=== PATIENT | male | born 1985 | race Caucasian/White ===

== ENCOUNTER 2016-06-26 10:38 | Emergency (ER) | payer SELFPAY ==
[~2016-06-26] VITALS: Ht 175.3 cm; Wt 70.0 kg
[~2016-06-26 10:38] MED LIST: ALPR1TAB3 PO
[2016-06-26 10:41] VITALS: BP 134/74; PULSE 92; RESP 16; TEMP 98.1; O2SAT 98
[2016-06-26] MEDS ORDERED: IBUP800T23 PO (12:11)
[2016-06-26] MEDS ORDERED: AMOX500C PO (12:11)
[2016-06-26] MEDS ORDERED: MAGICADU2 SWISH-SPIT (12:11)
--- NOTE | 2016-06-26 12:12 | PD ---
HPI Chief Complaint: ENT Complaint Time Seen by Provider: 12:10 Travel History International Travel<30 days: No Contact w/Intl Traveler<30days: No Traveled to known affect area: No History of Present Illness HPI 30-year-old male presents to the emergency Department with complaint of sore throat and white stuff on his tonsils for the last 3-4 days. Reports MAXIMUM TEMPERATURE 103.0 at home. Denies cough. Denies ear pain, nasal congestion. Reports swollen lymph nodes in his neck. Denies lump in throat, difficulty swallowing, unusual drooling. Reports painful swallowing. Has tried using a Q- tip to scrape some of the white stuff from his tonsils. Has taken ibuprofen and Tylenol with no relief of pain. Has not tried any other treatments or medications to alleviate his symptoms. No known relieving factors. Allergies to Tylenol, codeine, Ultram, Zoloft. No other modifying factors or associated signs and symptoms. PFSH Past Medical History Arthritis: Yes Asthma: No Anxiety: Yes Heart Rhythm Problems: No Cardiovascular Problems: Yes (VIRAL PERICARDITIS) High Cholesterol: No Chest Pain: No Congestive Heart Failure: No COPD: No Cerebrovascular Accident: No Diminished Hearing: No GERD: No Headaches: No Hepatitis: No Hiatal Hernia: No Hypertension: No Kidney Stones: No Musculoskeletal: No Neurologic: Yes (TBI) Reproductive: No Respiratory: No Migraines: No Myocardial Infarction: No Renal Failure: No Seizures: No Sleep Apnea: No Ulcer: No Past Surgical History Abdominal Surgery: No Appendectomy: No Cardiac Surgery: No Cholecystectomy: No Ear Surgery: No Endocrine Surgery: No Eye Surgery: No Genitourinary Surgery: No Gynecologic Surgery: No Oral Surgery: No Thoracic Surgery: No Social History Alcohol Use: Yes (BEER AND MIXED DRINKS ON WEEKEND) Tobacco Use: Yes (1 PPD X 12 YEARS) Substance Use: Yes (NARCOTICS) Allergies-Medications (Allergen,Severity, Reaction): Coded Allergies: Ultram (Verified Allergy, Severe, Itching, 12/25/15) Zoloft (Verified Allergy, Severe, Hives, 12/25/15) Tylenol/Codeine (Verified Adverse Reaction, Severe, Nausea/Vomiting, ) Reported Meds & Prescriptions Reported Meds & Active Scripts Active Ibuprofen 800 Mg Tab 800 Mg PO Q6HR PRN Magic Mouthwash Adult Liq (Multi-Ingredient Mouthwash/Gargle) 120 Ml Susp 5 Ml SWISH-SPIT Q3HR PRN Each 5mL contains: Nystatin 200,000units, Diphenhydramine 4.25mg, Viscous Lidocaine 10mg, Archer syrup 0.8 mL Amoxicillin 500 Mg Cap 500 Mg PO BID 10 Days Reported Alprazolam 1 Mg Tab 1 Mg PO TID Review of Systems Except as stated in HPI: all other systems reviewed are Neg Physical Exam Narrative GENERAL: Well-nourished, well-developed male patient, in no acute distress; afebrile, nontoxic-appearing SKIN: Warm and dry. No rash. HEAD: Atraumatic. Normocephalic. EYES: Pupils equal and round at 3 mm with brisk reaction. No scleral icterus. No injection or drainage. PERRLA. ENT: Mucosa pink and dry. Pharynx with 2+ tonsils; with erythema, exudate, and edema. No Uvular edema. No uvular, palatal, or tonsillar deviation. Airway patent. EARS: Bilateral pinnae and external canals appear within normal limits. Bilateral tympanic membranes without erythema, dullness or perforation.. NECK: Trachea midline. Anterior cervical lymphadenopathy and tenderness. CARDIOVASCULAR: Regular rate and rhythm. No murmur appreciated. RESPIRATORY: No accessory muscle use. Clear to auscultation. Breath sounds equal bilaterally. GASTROINTESTINAL: Abdomen soft, non-tender, nondistended. Hepatic and splenic margins not palpable. Bowel sounds are active 4 quadrants. MUSCULOSKELETAL: No obvious deformities. No clubbing. No cyanosis. No edema. NEUROLOGICAL: Awake and alert. Oriented 3. No obvious cranial nerve deficits. Motor grossly within normal limits. Normal speech. Moves all extremities. PSYCHIATRIC: Appropriate mood and affect; insight and judgment normal. Data Data Last Documented VS Vital Signs Date Time Temp Pulse Resp B/P Pulse Ox O2 Delivery O2 Flow Rate FiO2 06/26/16 10:41 98.1 92 16 134/74 98 Room Air MDM Medical Decision Making Medical Screen Exam Complete: Yes Emergency Medical Condition: Yes Medical Record Reviewed: Yes Differential Diagnosis Strep pharyngitis, exudative pharyngitis, viral pharyngitis, less likely peritonsillar abscess Narrative Course 30-year-old male with sore throat 3-4 days. Reports MAXIMUM TEMPERATURE 103.0. Afebrile in the ER. Denies cough. With anterior cervical lymphadenopathy and tenderness on palpation. Denies lump in throat, difficulty swallowing, unusual drooling. Patient afebrile in the ER and nontoxic appearing. Centor Score: Using Centor score for management of sore throat the patient's risk of GABHS pharyngitis is > or equal to 4=risk of GABHS 51-53%= treat empirically with antibiotics. Amoxicillin, Magic mouthwash, ibuprofen prescribed for home. Diagnosis Primary Impression: Exudative pharyngitis Referrals: Primary Care Physician Patient Instructions: General Instructions, Pharyngitis (ED) Departure Forms: Tests/Procedures, Work Release Enter return to work date: Jun 28, 2016 Additional Instructions: Take Antibiotics as prescribed and complete full course of antibiotics Get plenty of sleep/rest Rest your voice Drink plenty of fluids to prevent dehydration Use warm saltwater gargles to soothe throat pain Use an air humidifier/turn off ceiling fans Use throat lozenges as needed for sore throat Use ibuprofen or acetaminophen as needed to relieve pain and fever Follow-up with your primary care provider Return immediately to the emergency department, particularly if you have difficulty breathing Med/Other Pt SpecificInfo: Prescription(s) given Scripts Ibuprofen 800 Mg [id number] Mg PO Q6HR PRN (PAIN) #30 TAB Ref 0 Prov:Shanna Dietz 06/26/16 Hcpjqkzu-Wrldtprwygkqgdg-Nfmycizwc Liq (Magic Mouthwash Adult Liq)120 Ml Susp5 Ml SWISH-SPIT Q3HR PRN (SORE THROAT) #120 ML Ref 0 Each 5mL contains: Nystatin 200,000units, Diphenhydramine 4.25mg, Viscous Lidocaine 10mg, Archer syrup 0.8 mL Prov:Shanna Dietz 06/26/16 Amoxicillin 500 Mg Ofd120 Mg PO BID 10 Days Ref 0 Prov:Shanna Dietz 06/26/16 Disposition: 01 DISCHARGE HOME Condition: Stable Shanna Dietz Jun 26, 2016 12:12
== END 2016-06-26 12:30 | disposition home or self-care (01) ==
LOC: NEPB 10:38
DX: J02.9 Acute pharyngitis, unspecified (principal); F19.90 Other psychoactive substance use, unspecified, uncomplicated; F17.210 Nicotine dependence, cigarettes, uncomplicated
CPT/HCPCS: 99283

== ENCOUNTER 2016-08-12 01:42 | Emergency (ER) | payer SELFPAY ==
[2016-08-12 01:42] VITALS: BP 136/85; PULSE 72; RESP 18; TEMP 98.9; O2SAT 100
[~2016-08-12 01:42] MED LIST changes: +AMOX500C PO; +IBUP800T23 PO; +MAGICADU2 SWISH-SPIT
--- NOTE | 2016-08-12 01:59 | PD ---
HPI Chief Complaint: Chest Pain Time Seen by Provider: 01:54 Travel History International Travel<30 days: No Contact w/Intl Traveler<30days: No History of Present Illness HPI Patient 31-year-old male presents emergency department for complaints of chest pain in the center of his chest sharp in nature worsens when he takes a deep breath for the past 24 hours. Patient has significant history of rhinitis in the past. He does have also have a history of IV drug use. Patient states the pain seems worse when he takes deep breath denies any long trips denies any history of blood clots. Patient was arrested tonight and when he told the officer who arrested him that he was having chest pain he was brought to the emergency department. Patient states his current symptoms feel like pericarditis in the past. No fevers no shortness of breath no abdominal pain no nausea vomiting. PFSH Past Medical History Arthritis: Yes Asthma: No Anxiety: Yes Heart Rhythm Problems: No Cardiovascular Problems: Yes (VIRAL PERICARDITIS) High Cholesterol: No Chest Pain: No Congestive Heart Failure: No COPD: No Cerebrovascular Accident: No Diminished Hearing: No GERD: No Headaches: No Hepatitis: No Hiatal Hernia: No Hypertension: No Kidney Stones: No Musculoskeletal: No Neurologic: Yes (TBI) Reproductive: No Respiratory: No Migraines: No Myocardial Infarction: No Renal Failure: No Seizures: No Sleep Apnea: No Ulcer: No Past Surgical History Abdominal Surgery: No Appendectomy: No Cardiac Surgery: No Cholecystectomy: No Ear Surgery: No Endocrine Surgery: No Eye Surgery: No Genitourinary Surgery: No Gynecologic Surgery: No Oral Surgery: No Thoracic Surgery: No Social History Alcohol Use: Yes (BEER AND MIXED DRINKS ON WEEKEND) Tobacco Use: Yes (1 PPD X 12 YEARS) Substance Use: Yes (NARCOTICS) Allergies-Medications (Allergen,Severity, Reaction): Coded Allergies: Ultram (Verified Allergy, Severe, Itching, 12/25/15) Zoloft (Verified Allergy, Severe, Hives, 12/25/15) Tylenol/Codeine (Verified Adverse Reaction, Severe, Nausea/Vomiting, ) Reported Meds & Prescriptions Reported Meds & Active Scripts Active Ibuprofen 600 Mg Tab 600 Mg PO Q6H PRN Reported Suboxone Sublingual Film (Buprenorphine-Naloxone Sublingual Film) 2-0.5 Mg Film 1 Film SL Unique ID number required: Suboxone Sublingual Film (Buprenorphine-Naloxone Sublingual Film) 2-0.5 Mg Film 1 Film SL Unique ID number required: Celexa (Citalopram Hydrobromide) 20 Mg Tab 20 Mg PO DAILY Xanax (Alprazolam) 1 Mg Tab 1 Mg PO Q8H PRN Review of Systems Except as stated in HPI: all other systems reviewed are Neg Physical Exam Narrative GENERAL: Well-developed well-nourished no apparent distress SKIN: Focused skin assessment warm/dry. HEAD: Atraumatic. Normocephalic. EYES: Pupils equal and round. No scleral icterus. No injection or drainage. ENT: No nasal bleeding or discharge. Mucous membranes pink and moist. NECK: Trachea midline. No JVD. CARDIOVASCULAR: Regular rate and rhythm. No murmurs gallops or rubs. 2+ bilateral equal pulses in all 4 extremity's. No Osler's nodes no Janeway lesions. RESPIRATORY: No accessory muscle use. Clear to auscultation. Breath sounds equal bilaterally. GASTROINTESTINAL: Abdomen soft, non-tender, nondistended. Hepatic and splenic margins not palpable. MUSCULOSKELETAL: No obvious deformities. No clubbing. No cyanosis. No edema. NEUROLOGICAL: Awake and alert. No obvious cranial nerve deficits. Motor grossly within normal limits. Normal speech. PSYCHIATRIC: Appropriate mood and affect; insight and judgment normal. Data Data Last Documented VS Vital Signs Date Time Temp Pulse Resp B/P Pulse Ox O2 Delivery O2 Flow Rate FiO2 08/12/16 01:42 98.9 72 18 136/85 100 Room Air Orders Troponin I (08/12/16 01:54) Basic Metabolic Panel (Bmp) (08/12/16 01:54) Complete Blood Count With Diff (08/12/16 01:54) Chest, Single Ap (08/12/16 ) Ketorolac Inj (Toradol Inj) (08/12/16 03:00) Electrocardiogram (08/12/16 01:45) Labs Laboratory Tests Test 08/12/16 01:45 White Blood Count 8.7 TH/MM3 Red Blood Count 5.01 MIL/MM3 Hemoglobin 15.0 GM/DL Hematocrit 43.8 % Mean Corpuscular Volume 87.4 FL Mean Corpuscular Hemoglobin 29.8 PG Mean Corpuscular Hemoglobin 34.1 % Concent Red Cell Distribution Width 14.1 % Platelet Count 197 TH/MM3 Mean Platelet Volume 8.6 FL Neutrophils (%) (Auto) 70.8 % Lymphocytes (%) (Auto) 19.2 % Monocytes (%) (Auto) 9.0 % Eosinophils (%) (Auto) 0.6 % Basophils (%) (Auto) 0.4 % Neutrophils # (Auto) 6.2 TH/MM3 Lymphocytes # (Auto) 1.7 TH/MM3 Monocytes # (Auto) 0.8 TH/MM3 Eosinophils # (Auto) 0.1 TH/MM3 Basophils # (Auto) 0.0 TH/MM3 CBC Comment DIFF FINAL Differential Comment Sodium Level 140 MEQ/L Potassium Level 3.5 MEQ/L Chloride Level 102 MEQ/L Carbon Dioxide Level 32.6 MEQ/L Anion Gap 5 MEQ/L Blood Urea Nitrogen 13 MG/DL Creatinine 1.21 MG/DL Estimat Glomerular Filtration 69 ML/MIN Rate Random Glucose 90 MG/DL Calcium Level 9.1 MG/DL Troponin I LESS THAN 0.02 NG/ML MDM Medical Decision Making Medical Screen Exam Complete: Yes Emergency Medical Condition: Yes Interpretation(s) EKG shows normal sinus rhythm with a normal axis and a normal R wave progression. Large R wave deflections in V4 and V5 could be suggestive of LVH or could be secondary to his small habitus. No concerning ST T changes. Is a borderline EKG. No change from 12/25/2015. Differential Diagnosis Pericarditis, pleurisy, PE was considered but patient is excludable by wells and per criteria. NV is highly unlikely. Narrative Course Patient was roomed in emergency department, highly atypical for ACS. He appears well and nontoxic. No murmurs gallops or rubs are heard. Highly unlikely for endocarditis. Patient basic labs are sent given his history of IV drug use including intermittent cocaine. Troponin is negative, EKG is reassuring. At this time patient is low risk for cardiac etiology. He is stable for discharge. He was given Toradol for pain in the emergency department. Counts closely on smoking cessation and abstinence from IV drugs. Discussed return to ED criteria and follow-up with a primary care physician or the [facility]. He is stable for mcc this time. Diagnosis Primary Impression: Chest pain with low risk for cardiac etiology Additional Impression: Pleurisy Additional Instructions: Follow-up with your primary care physician or the [facility]. Med/Other Pt SpecificInfo: Prescription(s) given Scripts Ibuprofen 600 Mg [id number] Mg PO Q6H PRN (PAIN SCALE 1 TO 10) #20 TAB Ref 0 Prov:Jose Lewis MD 08/12/16 Disposition: [address] LAW ENFORCEMNT Condition: Stable Jose Lewis MD Aug 12, 2016 01:59
[2016-08-12] MEDS ORDERED: CELE20TA PO (02:02)
[2016-08-12] MEDS ORDERED: SUBO2MIS SL (02:02)
[2016-08-12] MEDS ORDERED: XANA1TAB2 PO (02:02)
[2016-08-12 02:12] LABS: AUTOMATED NEUTROPHIL # 6.2 TH/MM3 (1.8-7.7); BASOPHIL % 0.4 % (0.0-2.0); EOSINOPHIL # 0.1 TH/MM3 (0-0.4); EOSINOPHIL % 0.6 % (0.0-4.0); HEMATOCRIT 43.8 % (39.0-51.0); HEMO FLAGS DIFF FINAL; LYMPH % 19.2 % (9.0-44.0); LYMPHOCYTE # 1.7 TH/MM3 (1.0-4.8); MEAN CELL VOLUME 87.4 FL (80.0-100.0); MEAN CORPUSCULAR HEMOGLOBIN 29.8 PG (27.0-34.0); MEAN CORPUSCULAR HGB CONC 34.1 % (32.0-36.0); NEUT % 70.8 % (16.0-70.0); PLATELET COUNT 197 TH/MM3 (150-450); RED BLOOD COUNT 5.01 MIL/MM3 (4.50-5.90); RED CELL DISTRIBUTION WIDTH 14.1 % (11.6-17.2); WHITE BLOOD COUNT 8.7 TH/MM3 (4.0-11.0)
--- NOTE | 2016-08-12 02:22 | RADRPT ---
EXAM DATE/TIME: 08/12/2016 01:50 [facility] COMPARISON: No previous studies available for comparison. INDICATIONS : Chest pain. MEDICAL HISTORY : None. SURGICAL HISTORY : None. ENCOUNTER: Initial ACUITY: 1 day PAIN SCORE: 4/10 LOCATION: Left chest FINDINGS: A single view of the chest demonstrates the lungs to be symmetrically aerated without evidence of mas s, infiltrate or effusion. The cardiomediastinal contours are unremarkable. Osseous structures are intact. CONCLUSION: Normal examination. Sander Chacon Jr., MD on August 12, 2016 at 2:20 Board Certified Radiologist. This report was verified electronically.
[2016-08-12 02:24] LABS: ANION GAP 5 MEQ/L (5-15); BICARBONATE 32.6 MEQ/L (21.0-32.0); BLOOD UREA NITROGEN 13 MG/DL (7-18); CHLORIDE 102 MEQ/L (98-107); GLOMERULAR FILTRATION RATE 69 ML/MIN (>89); POTASSIUM 3.5 MEQ/L (3.5-5.1); SODIUM (NA) 140 MEQ/L (136-145)
[2016-08-12] MEDS ORDERED: KETOROLAC TROMETHAMINE 30 MG/ML (IVP) VIAL IV PUSH ONE (03:00)
[2016-08-12] MEDS ORDERED: IBUP-232 PO (03:32)
--- NOTE | 2016-08-12 10:45 | EKG ---
Date Performed: 08/12/2016 Time Performed: 01:45:48 PTAGE: 31 years EKG: Sinus rhythm POSSIBLE LEFT VENTRICULAR HYPERTROPHY ABNORMAL ECG Compared to prior tracing no significant change PREVIOUS TRACING : 12/25/2015 13.55 DOCTOR: Lisa Broderick Interpretating Date/Time 08/12/2016 10:37:57
== END 2016-08-12 04:22 ==
LOC: NEPE 01:42
DX: R07.9 Chest pain, unspecified (principal); R09.1 Pleurisy; R94.31 Abnormal electrocardiogram [ECG] [EKG]; F17.200 Nicotine dependence, unspecified, uncomplicated
CPT/HCPCS: 71010; 80048; 84484; 85025; 93005; 96374; 99285; J1885

== ENCOUNTER 2017-04-03 17:43 | Emergency (ER) | payer SELFPAY ==
[~2017-04-03 17:43] MED LIST changes: -ALPR1TAB3 PO; -AMOX500C PO; +CELE20TA PO; +IBUP-232 PO; -IBUP800T23 PO; -MAGICADU2 SWISH-SPIT; +SUBO2MIS SL; +XANA1TAB2 PO
[2017-04-03 17:50] VITALS: BP 136/79; PULSE 84; RESP 18; TEMP 97.7; O2SAT 97
--- NOTE | 2017-04-03 18:56 | RADRPT ---
EXAM DATE/TIME: 04/03/2017 18:20 [facility] COMPARISON: No previous studies available for comparison. INDICATIONS : Entire left foot pain. MEDICAL HISTORY : None. SURGICAL HISTORY : None. ENCOUNTER: Initial ACUITY: 1 day PAIN SCORE: 4/10 LOCATION: Left foot FINDINGS: Three view examination of the left foot demonstrates no soft tissue swelling, dislocation, or fractur e. The tarsal bones appear intact. The interphalangeal and metatarsophalangeal joints are intact. The calcaneus is intact. Bony mineralization is normal. CONCLUSION: Negative exam. Sander Akins MD on April 03, 2017 at 18:54 Board Certified Radiologist. This report was verified electronically.
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
== END 2017-04-03 19:31 | disposition home or self-care (01) ==
LOC: PHEFT 17:43
DX: S90.32XA Contusion of left foot, initial encounter (principal); V03.90XA Pedestrian on foot injured in collision with car, pick-up truck or van, unspecified whether traffic or nontraffic accident, initial encounter
CPT/HCPCS: 73630; 99283

== ENCOUNTER 2017-05-04 19:10 | Emergency (ER) | payer SELFPAY ==
[~2017-05-04] VITALS: Ht 175.3 cm; Wt 70.5 kg
[~2017-05-04 19:10] MED LIST changes: -CELE20TA PO; -IBUP-232 PO; -SUBO2MIS SL
[2017-05-04 19:25] VITALS: BP 137/79; PULSE 76; RESP 15; TEMP 98.4; O2SAT 100
--- NOTE | 2017-05-04 19:36 | PD ---
HPI Chief Complaint: Medical Clearance Time Seen by Provider: 19:26 Travel History International Travel<30 days: No Contact w/Intl Traveler<30days: No Traveled to known affect area: No History of Present Illness HPI 31-year-old man, brought in to the emergent arm via EMS after family called simply that he took heroin. He apparently was found sluggishly responsive, some concern for seizure. Patient states she had a TBI many years ago, no residual symptoms. He reports that he took an Lu-[place] and stuck it in his mouth so that it would foam and it would look like he was having a seizure. Patient denies any illicit drug use. Denies any complaints now. Is refusing any further evaluation. Does endorse a cough cold symptoms recently. Review of systems otherwise negative. History Past Medical History Narrative Medical Remote history TBI Influenza Vaccination: No Past Surgical History Surgical History: No Previous Surgery Social History Alcohol Use: Yes (OCCASIONALLY) Tobacco Use: Yes (1 PPD ) Allergies-Medications (Allergen,Severity, Reaction): Coded Allergies: sertraline (Verified Allergy, Severe, Hives, 05/04/17) tramadol (Verified Allergy, Severe, Itching, 05/04/17) acetaminophen (Verified Adverse Reaction, Severe, Nausea/Vomiting, ) codeine (Verified Adverse Reaction, Severe, Nausea/Vomiting, 05/04/17) Reported Meds & Prescriptions Reported Meds & Active Scripts Active Reported Xanax (Alprazolam) 1 Mg Tab 1 Mg PO Q8H PRN Review of Systems Except as stated in HPI: all other systems reviewed are Neg Physical Exam Narrative GENERAL: 31-year-old man, little bit sluggish and drowsy, but awake and answers questions appropriately. SKIN: Focused skin assessment warm/dry. HEAD: Atraumatic. Normocephalic. EYES: Pupils equal and round. No scleral icterus. No injection or drainage. ENT: No nasal bleeding or discharge. Mucous membranes pink and moist. NECK: Trachea midline. No JVD. CARDIOVASCULAR: Regular rate and rhythm. No murmur appreciated. RESPIRATORY: No accessory muscle use. Clear to auscultation. Breath sounds equal bilaterally. GASTROINTESTINAL: Abdomen soft, non-tender, nondistended. Hepatic and splenic margins not palpable. MUSCULOSKELETAL: No obvious deformities. No clubbing. No cyanosis. No edema. NEUROLOGICAL: Awake and alert. No obvious cranial nerve deficits. Motor grossly within normal limits. Normal speech. PSYCHIATRIC: Affect somewhat fl restricted. At, Data Data Last Documented VS Vital Signs Date Time Temp Pulse Resp B/P (MAP) Pulse Ox O2 Delivery O2 Flow Rate FiO2 05/04/17 19:25 98.4 76 15 137/79 (98) 100 MDM Medical Decision Making Medical Screen Exam Complete: Yes Emergency Medical Condition: Yes Differential Diagnosis Opioid use, seizure, syncope, other Narrative Course Medical decision-making 31-year-old man, probably was using opiates, is somewhat sluggish but arousable and breathing spontaneously without other sequela. Patient denies any illicit drug use. Has not required any reversal. History of TBI and family gives some history of seizure. Patient refusing any further evaluation at this time. Despite being a little bit sedated he does appear to have capacity. Refusing exam because he states he feels fine and believes that all these symptoms resulted because he was playing a joke by taking his Lu[place]. Unclear if this is true or not, but probably not. Nonetheless stable for discharge., Has capacity and refusing any further workup, plan for discharge. Diagnosis Primary Impression: Lethargy Additional Instructions: Avoid illicit drugs. Return to the emergency department for any recurrent or worsening symptoms. Follow-up with her primary doctor in 1-2 days if he do not feel completely well. Med/Other Pt SpecificInfo: No Change to Meds Disposition: 01 DISCHARGE HOME Condition: Stable Rohan Jones MD May 04, 2017 19:36
== END 2017-05-04 19:44 | disposition home or self-care (01) ==
LOC: NEPE 19:10
DX: R53.83 Other fatigue (principal); Z87.820 Personal history of traumatic brain injury; F17.200 Nicotine dependence, unspecified, uncomplicated
CPT/HCPCS: 99282